=== PATIENT | male | born 1975 | race Caucasian/White ===

== ENCOUNTER 2017-07-09 11:06 | Emergency (ER) | payer MEDICAID ==
[~2017-07-09] VITALS: Ht 180.3 cm; Wt 74.8 kg
[2017-07-09] MEDS ORDERED: ASPirin 81 mg TAB PO ONE (11:30)
[2017-07-09 11:50] LABS: Basophils # (auto) 0 uL; Basophils % (auto) 0.4 % (0.0-2.0); Eosinophils # (auto) 0.1 uL; Eosinophils % (auto) 0.7 % (0.0-7.0); Hematocrit 48.7 % (41.0-53.0); Hemoglobin 16.8 g/dL (13.5-17.5); Lymphocytes # (auto) 1.3 uL; Lymphocytes % (auto) 14.9 % (10.0-50.0); Mean Corpuscular Hemoglobin 30.3 pg (28.0-32.0); Mean Corpuscular Hgb Conc. 34.5 g/dL (32.0-36.0); Mean Corpuscular Volume 87.9 fL (80.0-100.0); Monocytes # (auto) 0.7 uL; Neutrophils # (auto) 6.7 uL; Nucleated Red Blood Cells % 0.5 %; Platelet Count (auto) 219 10^3/uL (140-450); Red Blood Cells 5.55 10^6/uL (4.5-5.90); Red Cell Distribution Width 13.7 % (11.8-14.3); White Blood Cell 8.8 10^3/uL (4.4-10.8)
[2017-07-09 12:14] LABS: Albumin 3.5 g/dL (3.4-5.0); BUN/Creatinine Ratio 23.6; Bilirubin, Total 0.2 mg/dL (0.2-1.0); Calcium 8.5 mg/dL (8.5-10.1); Potassium 3.9 mmol/L (3.5-5.1); Total Protein 6.9 g/dL (6.4-8.2)
[2017-07-09 14:42] VITALS: BP 128/79
== END 2017-07-09 14:47 | disposition home or self-care (01) ==
LOC: ER 11:06
DX: R07.89 Other chest pain (principal); F17.210 Nicotine dependence, cigarettes, uncomplicated
CPT/HCPCS: 36415; 71046; 80053; 83735; 84484; 85025; 93005